=== PATIENT | female | born 1995 | race Caucasian/White ===

== ENCOUNTER 2018-01-18 11:18 | Emergency (ER) | payer OTHER ==
[~2018-01-18] VITALS: Ht 152.4 cm; Wt 68.9 kg
[2018-01-18] MEDS ORDERED: Zofran4 MG SL (11:24)
[2018-01-18 12:49] LABS: BILIRUBIN NEGATIVE (NEGATIVE); BLOOD NEGATIVE (NEGATIVE); CLARITY SL CLOUDY (CLEAR); COLOR YELLOW (YELLOW); GLUCOSE NEGATIVE (NEGATIVE); KETONE NEGATIVE (NEGATIVE); LEUKO ESTERASE NEGATIVE (NEGATIVE); NITRITE NEGATIVE (NEGATIVE); PH 7.5 (5.0-9.0); UROBILINOGEN 0.2 E.U./dl (0.2-1.0)
[2018-01-18 13:07] LABS: BACTERIA TRACE; EPITHELIAL CELLS 15-20
[2018-01-18] MEDS ORDERED: COLACE100 MG PO (13:22)
== END 2018-01-18 13:54 | disposition home or self-care (01) ==
LOC: ED 11:18
PROVIDERS: Physician Assistant
DX: O26.892 Other specified pregnancy related conditions, second trimester (principal); K59.00 Constipation, unspecified; R10.9 Unspecified abdominal pain; Z3A.17 17 weeks gestation of pregnancy; Z98.890 Other specified postprocedural states